=== PATIENT | male | born 1980 | race Caucasian/White ===

== ENCOUNTER 2019-03-18 18:03 | Inpatient (IN) | payer OTHER ==
[2019-03-18 18:44] VITALS: BMI 24.6
--- NOTE | 2019-03-18 19:25 | HP ---
COWS - Scale Resting Pulse: 1= [place] 81-100 Sweatin=Flushed/Facial Moisture Restless Observation: 0= Sits Still Pupil Size: 1= Pupils >than Normal Bone or Joint Aches: 4=Acute Joint/Muscle Pain Runny Nose/ Eye Tearin= Runny Nose/Eyes GI Upset > 30mins: 1= Stomach Cramp Tremor Observation: 2= Slight Tremor Visible Yawning Observation: 1= 1-2x During Session Anxiety or Irritability: 2=Irritable/Anxious Goose Flesh Skin: 0=Smooth Skin COWS Score: 16 CIWA Score Nausea/Vomitin-Mild Nausea/No Vomiting Muscle Tremors: 3 Anxiety: 3 Agitation: 4-Moderately Restless Paroxysmal Sweats: 3 Orientation: 1-Uncertain about Date Tacttile Disturbances: 0-None Auditory Disturbances: 0-None Visual Disturbances: 0-None Headache: 2-Mild CIWA-Ar Total Score: 17 - Admission Criteria [facility]ASAS Guidelines: Admission for Medically Managed Detox: Requires at least one of the followin. CIWA greater than 12 2. Seizures within the past 24 hours 3. Delirium tremens within the past 24 hours 4. Hallucinations within the past 24 hours 5. Acute intervention needed for co occurring medical disorder 6. Acute intervention needed for co occurring psychiatric disorder 7. Severe withdrawal that cannot be handled at a lower level of care (continued vomiting, continued diarrhea, abnormal vital signs) requiring intravenous medication and/or fluids 8. Admission ROS [facility] Chief Complaint: Heroin and alcohol withdrawal symptoms Allergies/Adverse Reactions: Allergies Allergy/AdvReac Type Severity Reaction Status Date / Time sulfur dioxide Allergy Severe Verified 03/18/19 18:33 History of Present Illness: 38 years old male with heroin, Xanax and alcohol dependence is seeking admission to detox. Patient has been to previous detox in [place] and reports that this is his first detox in [place] and first admission to [facility]. He reports that he relocated to [place] about 4 moths ago. He has history of hypertension, GERD and depression. He denies suicide attempt and / or suicidal ideation at this time. Exam Limitations: No Limitations - Ebola screening Have you traveled outside of the country in the last 21 days: No (N) Have you had contact with anyone from an Ebola affected area: No Do you have a fever: No - Review of Systems Constitutional: Loss of Appetite, Malaise, Night Sweats, Changes in sleep, Weakness EENT: reports: Nose Congestion Respiratory: reports: No Symptoms reported Cardiac: reports: No Symptoms Reported GI: reports: Diarrhea (x 2), Nausea, Poor Fluid Intake, Abdominal cramping : reports: No Symptoms Reported Musculoskeletal: reports: Back Pain, Joint Pain, Muscle Pain Integumentary: reports: Dryness, Flushing Neuro: reports: Tremors Endocrine: reports: No Symptoms Reported Hematology: reports: No Symptoms Reported Psychiatric: reports: No Sypmtoms Reported, Mood/Affect Appropiate, Anxious Other Systems: Reviewed and Negative Patient History - Patient Medical History Hx Anemia: No Hx Asthma: No Hx Chronic Obstructive Pulmonary Disease (COPD): No Hx Cancer: No Hx Cardiac Disorders: No Hx Congestive Heart Failure: No Hx Hypertension: Yes (Not on medication) Hx Hypercholesterolemia: No Hx Pacemaker: No HX Cerebrovascular Accident: No Hx Seizures: No Hx Dementia: No Hx Diabetes: No Hx Gastrointestinal Disorders: Yes (GERD - Not on medication) Hx Liver Disease: No Hx Genitourinary Disorders: No Hx Sexually Transmitted Disorders: No Hx Renal Disease (ESRD): No Hx Thyroid Disease: No Hx Human Immunodeficiency Virus (HIV): No (Negative 2013) Hx Hepatitis C: No Hx Depression: Yes (Not on medication) Hx Suicide Attempt: No (Denies suicide attempt/suicidal ideation at this time) Hx Bipolar Disorder: No Hx Schizophrenia: No - Patient Surgical History Past Surgical History: No - PPD History Previous Implant?: Yes Documented Results: Negative w/o proof Implanted On Prior [facility] Admission?: No PPD to be Administered?: Yes - Reproductive History Patient is a Female of Child Bearing Age (11 -55 yrs old): No (Male) - Smoking Cessation Smoking history: Current some day smoker Have you smoked in the past 12 months: Yes Aproximately how many cigarettes per day: 2 Hx Chewing Tobacco Use: No Initiated information on smoking cessation: Yes 'Breaking Loose' booklet given: 03/18/19 - Substance & Tx. History Hx Alcohol Use: Yes Hx Substance Use: Yes Substance Use Type: Alcohol, Cocaine, Heroin, Marijuana, Opiates Hx Substance Use Treatment: Yes ([place] (Unable to recall name of the facility) ) - Substances abused Heroin Substance route: Injection Frequency: Daily Amount used: 4 to 6 bags Age of first use: 37 Date of last use: 03/18/19 Alprazolam (Xanax) Substance route: Oral Frequency: Daily Amount used: 4 mg Age of first use: 28 Date of last use: 03/17/19 Alcohol Substance route: Oral Frequency: Daily Amount used: 2 cans of beer Age of first use: 16 Date of last use: 03/18/19 Family Disease History - Family Disease History Family Disease History: Diabetes: Grandparent Admission Physical Exam S - Vital Signs Vital Signs: Vital Signs - 24 hr 03/18/19 18:32 Temperature 97.4 F L Pulse Rate 99 H Respiratory 16 Rate Blood Pressure 144/92 - Physical General Appearance: Yes: Within Normal Limits, Moderate Distress, Tremorous, Anxious HEENTM: Yes: Within Normal Limits Respiratory: Yes: Lungs Clear, Normal Breath Sounds, No Respiratory Distress Neck: Yes: Supple Breast: Yes: Breast Exam Deferred, Axillae mass/lump present Cardiology: Yes: Tachycardia Abdominal: Yes: Normal Bowel Sounds Genitourinary: Yes: Within Normal Limits Back: Yes: Normal Inspection Musculoskeletal: Yes: Back pain, Muscle Pain Extremities: Yes: Tremors Neurological: Yes: Alert, Normal Mood/Affect Integumentary: Yes: Warm Lymphatic: Yes: Within Normal Limits - Diagnostic (1) Alcohol dependence with uncomplicated withdrawal Current Visit: Yes Status: Acute (2) Opioid dependence with withdrawal Current Visit: Yes Status: Acute (3) Cannabis dependence with withdrawal Current Visit: Yes Status: Acute (4) Cocaine dependence with withdrawal Current Visit: Yes Status: Acute (5) Sedative, hypnotic or anxiolytic dependence with withdrawal, uncomplicated Current Visit: Yes Status: Acute (6) GERD (gastroesophageal reflux disease) Current Visit: Yes Status: Chronic Qualifiers: Esophagitis presence: without esophagitis Qualified Code(s): K21.9 - Gastro -esophageal reflux disease without esophagitis (7) HTN (hypertension) Current Visit: Yes Status: Chronic Qualifiers: Hypertension type: essential hypertension Qualified Code(s): I10 - Essential (primary) hypertension (8) Depression Current Visit: Yes Status: Chronic Qualifiers: Depression Type: unspecified Qualified Code(s): F32.9 - Major depressive disorder, single episode, unspecified (9) Nicotine dependence Current Visit: Yes Status: Chronic Qualifiers: Nicotine product type: cigarettes Substance use status: uncomplicated Qualified Code(s): F17.210 - Nicotine dependence, cigarettes, uncomplicated Cleared for Admission [facility] - Detox or Rehab [facility] Level of Care: Medically Managed Detox Regimen/Protocol: Methadone/Valium Breathalyzer - Breathalyzer Breathalyzer: 0 Urine Drug Screen - Test Device Lot number: [id number] Expiration date: 12/17/20 - Control Is test valid?: Yes - Results Drug screen NEGATIVE: No Urine drug screen results: THC-Marijuana, GREG-Cocaine, FEN-Fentanyl, MOP-Opiates , OXY-Oxycodone, MTD-Methadone, BZO-Benzodiazepines Inpatient Rehab Admission - Rehab Decision to Admit Inpatient rehab admission?: No
[2019-03-18] MEDS ORDERED: cloNIDine HCL 0.1 MG TABLET PO PRN (19:39)
[2019-03-18] MEDS ORDERED: MENTHOL/PHENOL 1 EACH UD MM PRN (19:39)
[2019-03-18] MEDS ORDERED: MAG HYDROX/AL HYDROX/SIMETH 30 ML UNIT-DOSE CUP PO PRN (19:39)
[2019-03-18] MEDS ORDERED: ACETAMINOPHEN 325 MG TABLET (FP) PO PRN ×2 (19:39)
[2019-03-18] MEDS ORDERED: METHADONE HCL 10 MG TABLET (FOR DETOX USE ONLY) PO ONE (19:39)
[2019-03-18] MEDS ORDERED: MAGNESIUM CITRATE 300 ML BOTTLE PO PRN (19:39)
[2019-03-18] MEDS ORDERED: BISMUTH SUBSALICYLATE 524 MG/30 ML UD PO PRN (19:39)
[2019-03-18] MEDS ORDERED: METHOCARBAMOL 500 MG TABLET PO PRN (19:39)
[2019-03-18] MEDS ORDERED: MAGNESIUM HYDROX 2400MG/30ML ORAL SUSPENSION 30 ML CUP PO PRN (19:39)
[2019-03-18] MEDS ORDERED: IBUPROFEN 400 MG TABLET (FP) PO PRN (19:39)
[2019-03-18] MEDS: diazePAM 5 MG TABLET PO SCH (22:10)
[2019-03-18] MEDS: THIAMINE HCL 100 MG TABLET (FP) PO SCH (22:11)
[2019-03-18] MEDS: MELATONIN 5 MG TABLETS PO PRN (22:14)
[2019-03-18] MEDS: NICOTINE POLACRILEX 2 MG GUM BUC PRN (22:19)
[2019-03-19] MEDS: diazePAM 5 MG TABLET PO SCH ×3 (06:12→22:09)
[2019-03-19 09:31] LABS: ALBUMIN 3.5 g/dl (3.4-5.0); BILIRUBIN,TOTAL 0.3 mg/dL (0.2-1); BLOOD UREA NITROGEN 13.9 mg/dL (7-18); CALCIUM 8.7 mg/dL (8.5-10.1); POTASSIUM 3.8 mmol/L (3.5-5.1); TOT PROT 7.4 g/dl (6.4-8.2)
[2019-03-19] MEDS ORDERED: METHADONE HCL 5 MG TABLET (FOR DETOX USE ONLY) ONE (09:33)
[2019-03-19] MEDS ORDERED: METHADONE HCL 10 MG TABLET (FOR DETOX USE ONLY) ONE (09:33)
[2019-03-19 09:36] LABS: HEMOGLOBIN 12.4 GM/dL (11.7-16.9); MCHC 35.1 g/dl (32.0-35.9); WHITE BLOOD COUNT 3.3 K/mm3 (4.0-10.0)
[2019-03-19] MEDS ORDERED: METHADONE (DETOX) 20 MG, METHADONE (DETOX) 5 MG PO ONE (10:00)
[2019-03-19] MEDS: NICOTINE 14 MG/24 HOURS TOPICAL PATCH TD SCH (10:08)
[2019-03-19] MEDS: NICOTINE POLACRILEX 2 MG GUM BUC PRN ×2 (10:08→17:35)
[2019-03-19] MEDS: PRENATAL VITAMINS W/ FOLIC ACID TABLET (FP) PO SCH (10:08)
[2019-03-19 10:29] LABS: HEMATOCRIT 35.3 % (35.4-49); MEAN CELL VOLUME 91.1 fl (80-96); MEAN PLT VOLUME 6.9 fl (7.5-11.1); PLATELET COUNT 212 K/MM3 (134-434); RBC 3.87 M/mm3 (4.00-5.60); RDW 13.4 % (11.9-15.9)
--- NOTE | 2019-03-19 10:43 | PN ---
S CIWA - CIWA Score Nausea/Vomitin-No Nausea/No Vomiting Muscle Tremors: 2 Anxiety: 2 Agitation: 2 Paroxysmal Sweats: 3 Orientation: 0-Oriented Tacttile Disturbances: 0-None Auditory Disturbances: 0-None Visual Disturbances: 0-None Headache: 2-Mild CIWA-Ar Total Score: 11 S COWS - Scale Resting Pulse: 0= [place] 80 or Below Sweatin= Beads of Sweat on Face Restless Observation: 1= Difficult to Sit Still Pupil Size: 0= Normal to Room Light Bone or Joint Aches: 2= Severe Diffuse Aches Runny Nose/ Eye Tearin= None GI Upset > 30mins: 0= None Tremor Observation of Outstretched Hands: 2= Slight Tremor Visible Yawning Observation: 1= 1-2x During Session Anxiety or Irritability: 2=Irritable/Anxious Goose Flesh Skin: 0=Smooth Skin COWS Score: 11 S Progress Note (SOAP) Subjective: c/o anxiety, sweats, interrupted sleep, and headache. Objective: 03/19/19 10:45 Vital Signs 03/19/19 03/19/19 03/19/19 03:30 07:08 09:38 Temperature 97.3 F L 97.7 F Pulse Rate 61 69 Respiratory 18 18 17 Rate Blood Pressure 130/68 133/79 Lab Results WBC 3.3 K/mm3 (4.0-10.0) L 03/19/19 07:30 RBC 3.87 M/mm3 (4.00-5.60) L 03/19/19 07:30 Hgb 12.4 GM/dL (11.7-16.9) 03/19/19 07:30 Hct 35.3 % (35.4-49) L 03/19/19 07:30 MCV 91.1 fl (80-96) 03/19/19 07:30 MCHC 35.1 g/dl (32.0-35.9) 03/19/19 07:30 RDW 13.4 % (11.9-15.9) 03/19/19 07:30 Plt Count 212 K/MM3 (134-434) 03/19/19 07:30 Sodium 139 mmol/L (136-145) 03/19/19 07:30 Potassium 3.8 mmol/L (3.5-5.1) 03/19/19 07:30 Chloride 104 mmol/L (98-107) 03/19/19 07:30 Carbon Dioxide 30 mmol/L (21-32) 03/19/19 07:30 Anion Gap 5 MMOL/L (8-16) L 03/19/19 07:30 BUN 13.9 mg/dL (7-18) 03/19/19 07:30 Creatinine 1.0 mg/dL (0.55-1.3) 03/19/19 07:30 Random Glucose 104 mg/dL (74-106) 03/19/19 07:30 Calcium 8.7 mg/dL (8.5-10.1) 03/19/19 07:30 Labs noted. Assessment: 03/19/19 10:47 AOX3, in no acute respiratory distress. Full ROM, ambulating in the unit. Mild withdrawal symptoms. Plan: continue detox.
[2019-03-19] MEDS: diazePAM 5 MG TABLET PO PRN (17:34)
[2019-03-19] MEDS: THIAMINE HCL 100 MG TABLET (FP) PO SCH (22:09)
[2019-03-19] MEDS: MELATONIN 5 MG TABLETS PO PRN (22:10)
[2019-03-20] MEDS: diazePAM 5 MG TABLET PO SCH ×2 (05:36→18:52)
--- NOTE | 2019-03-20 09:39 | EKG ---
Test Reason : Blood Pressure : / mmHG Vent. Rate : 078 BPM Atrial Rate : 078 BPM P-R Int : 150 ms QRS Dur : 114 ms QT Int : 398 ms P-R-T Axes : 007 081 037 degrees QTc Int : 453 ms NORMAL SINUS RHYTHM NORMAL ECG NO PREVIOUS ECGS AVAILABLE Confirmed by PAZ GROVE, ALANA ([id number]) on 03/20/2019 9:39:16 AM Referred By: NEO TORRES Confirmed By:ALANA MULLEN MD
[2019-03-20] MEDS ORDERED: METHADONE HCL 10 MG TABLET (FOR DETOX USE ONLY) PO ONE (10:00)
[2019-03-20] MEDS: PRENATAL VITAMINS W/ FOLIC ACID TABLET (FP) PO SCH (10:11)
[2019-03-20] MEDS: NICOTINE 14 MG/24 HOURS TOPICAL PATCH TD SCH (10:11)
[2019-03-20] MEDS: NICOTINE POLACRILEX 2 MG GUM BUC PRN (10:12)
--- NOTE | 2019-03-20 15:37 | PN ---
S CIWA - CIWA Score Nausea/Vomitin-Mild Nausea/No Vomiting Muscle Tremors: 4-Moderate,w/Arms Extend Anxiety: 3 Agitation: 3 Paroxysmal Sweats: 3 Orientation: 0-Oriented Tacttile Disturbances: 0-None Auditory Disturbances: 0-None Visual Disturbances: 0-None Headache: 0-None Present CIWA-Ar Total Score: 14 BHS COWS - Scale Resting Pulse: 1= [place] 81-100 Sweatin= Chills/Flushing Restless Observation: 3= Extraneous Movement Pupil Size: 0= Normal to Room Light Bone or Joint Aches: 2= Severe Diffuse Aches Runny Nose/ Eye Tearin= Runny Nose/Eyes GI Upset > 30mins: 2= Nausea/Diarrhea Tremor Observation of Outstretched Hands: 2= Slight Tremor Visible Yawning Observation: 0= None Anxiety or Irritability: 2=Irritable/Anxious Goose Flesh Skin: 0=Smooth Skin COWS Score: 15 BHS Progress Note (SOAP) Subjective: Tremor, interrupted sleep Objective: 03/20/19 15:33 Last Vital Signs Temp Pulse Resp BP Pulse Ox 98.2 F 85 18 147/80 03/20/19 09:22 03/20/19 09:22 03/20/19 09:22 03/20/19 09:22 Elevated b/p 147/80 (has HTN, not taking meds, presently on clonidine prn) Laboratory Tests 03/19/19 03/19/19 03/19/19 07:30 07:30 07:30 WBC 3.3 L RBC 3.87 L Hgb 12.4 Hct 35.3 L MCV 91.1 MCH 32.0 MCHC 35.1 RDW 13.4 Plt Count 212 MPV 6.9 L Sodium 139 Potassium 3.8 Chloride 104 Carbon Dioxide 30 Anion Gap 5 L BUN 13.9 Creatinine 1.0 Est GFR (CKD-EPI)AfAm 110.17 Est GFR (CKD-EPI)NonAf 95.05 Random Glucose 104 Calcium 8.7 Total Bilirubin 0.3 AST 24 ALT 42 Alkaline Phosphatase 74 Total Protein 7.4 Albumin 3.5 RPR Titer Nonreactive Labs reviewed Assessment: 03/20/19 15:33 Withdrawal sxs Noted with elevated b/p (has HTN) Plan: Continue detox Encouraged PO water intake HTN: continue clonidine prn, follow up with PCP for management
[2019-03-20] MEDS: MELATONIN 5 MG TABLETS PO PRN ×2 (21:59→23:54)
[2019-03-20] MEDS: THIAMINE HCL 100 MG TABLET (FP) PO SCH (21:59)
[2019-03-20] MEDS: diazePAM 5 MG TABLET PO PRN (23:53)
[2019-03-20] MEDS: hydrOXYzine PAMOATE 25 MG CAPSULE (FP) PO PRN (23:54)
[2019-03-21] MEDS ORDERED: diazePAM 5 MG TABLET PO ONE (06:00)
[2019-03-21] MEDS ORDERED: METHADONE HCL 10 MG TABLET (FOR DETOX USE ONLY) ONE (09:36)
[2019-03-21] MEDS ORDERED: METHADONE HCL 5 MG TABLET (FOR DETOX USE ONLY) ONE (09:37)
[2019-03-21] MEDS ORDERED: METHADONE (DETOX) 10 MG, METHADONE (DETOX) 5 MG PO ONE (10:00)
[2019-03-21] MEDS: NICOTINE 14 MG/24 HOURS TOPICAL PATCH TD SCH (10:09)
[2019-03-21] MEDS: PRENATAL VITAMINS W/ FOLIC ACID TABLET (FP) PO SCH (10:09)
[2019-03-21] MEDS: NICOTINE POLACRILEX 2 MG GUM BUC PRN (10:09)
--- NOTE | 2019-03-21 11:51 | PN ---
[facility] CIWA - CIWA Score Nausea/Vomitin-No Nausea/No Vomiting Muscle Tremors: 3 Anxiety: 2 Agitation: 1-Slight > Activity Paroxysmal Sweats: 2 Orientation: 0-Oriented Tacttile Disturbances: 0-None Auditory Disturbances: 0-None Visual Disturbances: 0-None Headache: 0-None Present CIWA-Ar Total Score: 8 BHS COWS - Scale Resting Pulse: 0= [place] 80 or Below Sweatin= Chills/Flushing Restless Observation: 1= Difficult to Sit Still Pupil Size: 0= Normal to Room Light Bone or Joint Aches: 2= Severe Diffuse Aches Runny Nose/ Eye Tearin= Nasal Congestion GI Upset > 30mins: 0= None Tremor Observation of Outstretched Hands: 1= Tremor [place], Not Seen Yawning Observation: 1= 1-2x During Session Anxiety or Irritability: 2=Irritable/Anxious Goose Flesh Skin: 0=Smooth Skin COWS Score: 9 S Progress Note (SOAP) Subjective: sweats shakes interrupted sleep body aches Objective: 03/21/19 11:50 Vital Signs Temperature 97.7 F 03/21/19 10:00 Pulse Rate 74 03/21/19 10:00 Respiratory Rate 18 03/21/19 10:00 Blood Pressure 145/101 H 03/21/19 10:00 O2 Sat by Pulse Oximetry (%) Laboratory Tests 03/19/19 03/19/19 03/19/19 07:30 07:30 07:30 WBC 3.3 L RBC 3.87 L Hgb 12.4 Hct 35.3 L MCV 91.1 MCH 32.0 MCHC 35.1 RDW 13.4 Plt Count 212 MPV 6.9 L Sodium 139 Potassium 3.8 Chloride 104 Carbon Dioxide 30 Anion Gap 5 L BUN 13.9 Creatinine 1.0 Est GFR (CKD-EPI)AfAm 110.17 Est GFR (CKD-EPI)NonAf 95.05 Random Glucose 104 Calcium 8.7 Total Bilirubin 0.3 AST 24 ALT 42 Alkaline Phosphatase 74 Total Protein 7.4 Albumin 3.5 RPR Titer Nonreactive labs noted aaox3 ambulating no acute distress Assessment: 03/21/19 11:51 withdrawal sx Plan: continue detox increase fluids
[2019-03-21] MEDS: MELATONIN 5 MG TABLETS PO PRN (22:05)
[2019-03-21] MEDS: hydrOXYzine PAMOATE 25 MG CAPSULE (FP) PO PRN (22:05)
[2019-03-21] MEDS: THIAMINE HCL 100 MG TABLET (FP) PO SCH (22:05)
[2019-03-22] MEDS: NICOTINE 14 MG/24 HOURS TOPICAL PATCH TD SCH (09:37)
[2019-03-22] MEDS: PRENATAL VITAMINS W/ FOLIC ACID TABLET (FP) PO SCH (09:39)
[2019-03-22] MEDS: NICOTINE POLACRILEX 2 MG GUM BUC PRN ×2 (09:40→20:24)
[2019-03-22] MEDS ORDERED: METHADONE HCL 10 MG TABLET (FOR DETOX USE ONLY) PO ONE (10:00)
--- NOTE | 2019-03-22 13:50 | PN ---
[facility] Progress Note Note: pt c/o of anxiety. pt appeared a bit anxious valium 5mg prn x one day ordered. pt in agreement.
[2019-03-22] MEDS: diazePAM 5 MG TABLET PO PRN (20:28)
[2019-03-22] MEDS: THIAMINE HCL 100 MG TABLET (FP) PO SCH (21:50)
[2019-03-22] MEDS: MELATONIN 5 MG TABLETS PO PRN (21:50)
[2019-03-22] MEDS: hydrOXYzine PAMOATE 25 MG CAPSULE (FP) PO PRN (21:50)
[2019-03-23] MEDS: diazePAM 5 MG TABLET PO PRN (05:28)
[2019-03-23] MEDS ORDERED: METHADONE HCL 5 MG TABLET (FOR DETOX USE ONLY) PO ONE (06:00)
[2019-03-23 09:12] VITALS: BP 134/62; PULSE 97; TEMP 98
--- NOTE | 2019-03-23 09:33 | DS ---
[facility] Detox Discharge Summary Admission Date: 03/18/19 Discharge Date: 03/23/19 - History Present History: Alcohol Dependence, Cannabis Dependence, Cocaine Dependence, Opioid Dependence, Sedative Dependence - Physical Exam Results Vital Signs: Vital Signs Temperature 98.0 F 03/23/19 09:11 Pulse Rate 97 H 03/23/19 09:11 Respiratory Rate 18 03/23/19 09:11 Blood Pressure 134/62 03/23/19 09:11 O2 Sat by Pulse Oximetry (%) Pertinent Admission Physical Exam Findings: pt arrived in withdrawals Laboratory Tests 03/19/19 03/19/19 03/19/19 07:30 07:30 07:30 WBC 3.3 L RBC 3.87 L Hgb 12.4 Hct 35.3 L MCV 91.1 MCH 32.0 MCHC 35.1 RDW 13.4 Plt Count 212 MPV 6.9 L Sodium 139 Potassium 3.8 Chloride 104 Carbon Dioxide 30 Anion Gap 5 L BUN 13.9 Creatinine 1.0 Est GFR (CKD-EPI)AfAm 110.17 Est GFR (CKD-EPI)NonAf 95.05 Random Glucose 104 Calcium 8.7 Total Bilirubin 0.3 AST 24 ALT 42 Alkaline Phosphatase 74 Total Protein 7.4 Albumin 3.5 RPR Titer Nonreactive today pt is aaox3 ambulating no acute distress no s/s of withdrawal sx - Treatment Hospital Course: Detox Protocol Followed, Detoxed Safely, Responded well, Discharged Condition Good, Rehab Referral Accepted Patient has Accepted a Rehab Referral to: pt declined; referral provided - Medication Discharge Medications: Ambulatory Orders NK [No Known Home Medication] 03/18/19 - Diagnosis (1) Alcohol dependence with uncomplicated withdrawal Current Visit: Yes Status: Chronic (2) Cannabis dependence with withdrawal Current Visit: Yes Status: Chronic (3) Cocaine dependence with withdrawal Current Visit: Yes Status: Acute (4) Opioid dependence with withdrawal Current Visit: Yes Status: Acute (5) Sedative, hypnotic or anxiolytic dependence with withdrawal, uncomplicated Current Visit: Yes Status: Acute (6) Depression Current Visit: Yes Status: Chronic Qualifiers: Depression Type: unspecified Qualified Code(s): F32.9 - Major depressive disorder, single episode, unspecified (7) GERD (gastroesophageal reflux disease) Current Visit: Yes Status: Chronic Qualifiers: Esophagitis presence: without esophagitis Qualified Code(s): K21.9 - Gastro -esophageal reflux disease without esophagitis (8) HTN (hypertension) Current Visit: Yes Status: Chronic Qualifiers: Hypertension type: essential hypertension Qualified Code(s): I10 - Essential (primary) hypertension (9) Nicotine dependence Current Visit: Yes Status: Chronic Qualifiers: Nicotine product type: cigarettes Substance use status: uncomplicated Qualified Code(s): F17.210 - Nicotine dependence, cigarettes, uncomplicated - AMA Did Patient Leave Against Medical Advice: No
== END 2019-03-23 09:17 | disposition home or self-care (01) | DRG 773 ==
LOC: YASAS 18:03 → Y6N 20:58
PROVIDERS: ADMIT Surgery; ATTEND Surgery
PROC: HZ2ZZZZ Detoxification Services for Substance Abuse Treatment (ICD-10-PCS; principal; 2019-03-18)
DX: F10.230 Alcohol dependence with withdrawal, uncomplicated (principal); F11.23 Opioid dependence with withdrawal; F13.230 Sedative, hypnotic or anxiolytic dependence with withdrawal, uncomplicated; F14.23 Cocaine dependence with withdrawal; F12.23 Cannabis dependence with withdrawal; F17.210 Nicotine dependence, cigarettes, uncomplicated; F32.9 Major depressive disorder, single episode, unspecified; I10 Essential (primary) hypertension; K21.9 Gastro-esophageal reflux disease without esophagitis
CPT/HCPCS: 36415; 80053; 85027; 86480; 86593; 93005; 93010; J0735